=== PATIENT | male | born 1975 | race Caucasian/White ===

== ENCOUNTER 2017-05-24 16:40 | Inpatient (IN) | payer MEDICAID ==
[2017-05-24] MEDS ORDERED: ONDANSETRON 4 MG/2 ML VIAL IVP ONE (16:48)
[2017-05-24] MEDS ORDERED: fentaNYL 100 MCG/2 ML INJ IVP ONE ×3 (16:48→19:03)
[2017-05-24] MEDS ORDERED: TDAP ADULT 0.5 ML INJ (BOOSTRIX) IM ONE (16:48)
[2017-05-24] MEDS ORDERED: NS 1,000 ML IV ONE ×2 (16:48→17:55)
--- NOTE | 2017-05-24 16:52 | EDPHY ---
H & P HPI/ROS: HPI CHIEF COMPLAINT: Fell 10-12 feet off a roof. Head injury. Head laceration. Right wrist pain. Left shoulder pain. Bilateral knee pain. Positive LOC. HISTORY OF PRESENT ILLNESS: This patient is a 42-year-old male, otherwise healthy no significant medical history does not take any daily medications not on any anticoagulation. He states that he fell off a roof 10-12 feet. He struck his head on concrete. Positive LOC. He presents by private vehicle walk into the emergency room. He is GCS 15 upon arrival. Hemodynamically stable. His main complaint is left shoulder pain, right wrist pain, headache. He denies any neck pain chest pain or shortness of breath. Denies abdominal pain. Additionally tells me he has bilateral knee pain. His pain is 7/10. Worse on his left shoulder. He has an obvious deformity on his right wrist. Upon arrival to the emergency room this patient head to toe trauma exam. He was immediately placed in a cervical collar. His clothes were all removed. His head to toe trauma exam shows an obvious right wrist deformity. Not open. His right hand is neurovascularly intact. Additionally he has a deformity to his left shoulder. His left arm is neurovascular intact good distal pulse. Good distal pulses both arms. He has obvious head laceration to left frontal temporal region. No midline cervical spine pain or step-offs. No back pain on exam. Moves all his extremities but complains of bilateral knee pain. Past Medical History: No medical history Past Surgical History: No surgical history Social History: Denies daily use drugs alcohol tobacco products. 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 Family History: Noncontributory. ROS REVIEW OF SYSTEMS: A comprehensive 10 point review of systems is otherwise negative aside from elements mentioned in the history of present illness. Exam Constitutional GCS 15, alert and orient x4, triage nursing summary reviewed, vital signs reviewed, awake/alert. Eyes normal conjunctivae and sclera, EOMI, PERRLA. HENT head/neck: Obvious scalp hematoma to left side of the head, with laceration present, neck no midline cervical spine pain or step-offs, no crepitus. Midface stable. No evidence of basilar skull fracture. TMs are clear. moist mucus membranes, no epistaxis, neck supple/ no meningismus, no raccoon eyes. Respiratory clear to auscultation bilaterally, normal breath sounds, no respiratory distress, no wheezing. Cardiovascular no chest wall crepitus. No chest wall deformity. rate normal, regular rhythm, no murmur, no edema, distal pulses normal. Gastrointestinal soft, non-tender, no rebound, no guarding, normal bowel sounds, no distension, no pulsatile mass. Genitourinary no CVA tenderness. Musculoskeletal left upper extremity: Good distal pulse. Good radial pulse. Good cap refill. Obvious deformity and swelling to left shoulder. Additionally right arm good distal pulse good cap refill. Warm extremity obvious deformity to the right wrist. Closed. Bilateral knee tenderness to palpation anteriorly. However full range of motion no significant swelling. No laceration present. no midline vertebral tenderness, full range of motion, no calf swelling, no tenderness of extremities, no meningismus, neurovascularly intact. Skin pink, warm, & dry, no rash, laceration present to the left frontal temporal region. Neurologic awake, alert and oriented x 3, AAOx3, moves all 4 extremities equally, motor intact, sensory intact, CN II-XII intact, normal cerebellar, normal vision, normal speech. Psychiatric normal mood/affect. Heme/Lymph/Immune no lymphadenopathy. Differential Diagnosis: Includes but is not limited to in a particular order closed-head injury, concussion, scalp hematoma, scalp laceration, intracranial bleed, traumatic subarachnoid, subdural, epidural, skull fracture, cervical spine injury, multiple orthopedic injuries including right wrist fracture, left shoulder fracture, rib fractures, chest wall injury, intrathoracic chest traumatic injury, intra-abdominal traumatic injury, solid organ injury, extremity injury. Medical Decision Making: Plan for this patient 2 large-bore IVs full gambling monitor, blood draw, IV fluid bolus 1 L normal saline, IV fentanyl for pain control. IV Zofran for nausea. Proceed directly to CT scan head neck chest abdomen pelvis trauma protocol. And then secondary survey with x-rays of the right wrist, left shoulder, bilateral knees. Re-evaluation: CT scan of the head without contrast and cervical spine without contrast for trauma. The results of the study are shows a significant left scalp hematoma, otherwise no intracranial bleed or skull fracture, no cervical spine fracture]. The study was read by Dr. Ceja I viewed the images myself on the PACS system. CT scan of the chest abdomen pelvis with IV contrast for trauma . The results of the study are no acute traumatic injury. It does recognize a left shoulder posterior dislocation with Hill-Sachs deformity.. The study was read by Dr. Ceja I viewed the images myself on the PACS system. ED x-ray: Chest one view: This shows no acute cardiopulmonary disease however does recognize the left posterior shoulder dislocation. ED x-ray left shoulder: This shows a posterior shoulder dislocation with Hill- Sachs deformity. As well as a hairline fracture through the neck head region ED x-ray right wrist: This shows a comminuted distal right wrist radius fracture. Critical Care: Total Critical Care Time Spent Managing this Patient: 65 Minutes. This time was spent Exclusively with this patient. This Care was exclusive of procedures. The Organ System/life at risk was poly trauma This Patient was in Critical Condition because multiple orthopedic fractures. Additionally large scalp hematoma additionally large scalp laceration. 1840: Procedure: Procedural sedation. Indication: Closed reduction of left shoulder posterior dislocation additionally indication comminuted distal right radius fracture requiring reduction. Additional procedure laceration repair under conscious sedation. A pre-sedation evaluation was completed on the patient just prior to the procedure. Patient is an appropriate candidate for procedural sedation with ASA class 1 E. The risks of the sedation were discussed including but not limited to dysrhythmia, need for airway intervention or general anesthesia, disability, ; and verbal consent obtained. A timeout was observed and patient's identity confirmed. The patient was sedated with 100mg PROPOFOL The patient was monitored with continuous pulse oximetry, capnography, and gambling monitor. There were no complications and no significant hypoxemia. I remained at the bedside for the sedation. The total time I spent in the procedural sedation was 35. 1855: This patient is now recovered from conscious sedation. He speaking coherently. There were no complications. His right arm was splinted. It was splinted in a sugar-tong splint. He is neurovascularly intact post splint placement. Good radial pulse. Good cap refill. Additionally the patient's left arm was placed in a sling. Right arm post sugar -tong splint is now pacing the sling. Laceration Repair Procedure: Verbal Consent was obtained, Under sterile conditions, The patient had lidocaine with epinephrine used approximately 10ccs to local anesthetize the 10cm LEFT SCALP FOREHEAD WITH HEMATOMA Laceration. The wound was copiously irrigated with sterile fluid, the wound was explored for foreign bodies there were none visualized, the wound was explored with a sterile glove to the base. There are no deep structures involved, including no arterial injury. NINE Interrupted 5.OPROLENE Sutures were placed in this patient's laceration. He had good close approximation of the wound edges. He Tolerated this well. 1849: I spoke with Trauma surgery Dr. Zhou Glover. He has accepted this patient in transfer to [facility] emergency room as a trauma patient. Reason for transfer observation. Reason for transfer right arm fracture, left arm fracture, left arm dislocation, left forehead hematoma, left forehead laceration , fall 10 feet. Need for observation. ED x-ray bilateral knees: Images reviewed by me. I do not appreciate acute fracture. FINAL DIAGNOSIS: Right wrist fracture, left humeral neck fracture, left shoulder dislocation, significant left-sided scalp hematoma, forehead laceration. 1858: Additionally did update the emergency room on this patient's condition. He remains hemodynamically stable GCS 15 no acute distress. He will be transferred by ALS transport to ER. 1902: I did consult Dr. Alvarado with Orthopedics and discussed this patient's Orthopedics injury including wrist. Left shoulder. He will consult on the patient at [facility]. Source: Patient Constitutional: Initial Vital Signs Temperature (C) 36.9 C 05/24/17 16:42 Heart Rate 82 05/24/17 16:42 Respiratory Rate 28 H 05/24/17 16:42 Blood Pressure 140/112 H 05/24/17 16:42 O2 Sat (%) 94 05/24/17 16:42 O2 Delivery Mode [Procedural Non-Rebreather Mask 1st] O2 Delivery Mode [Procedural Non-Rebreather Mask 2nd] O2 Delivery Mode [.Immediate Non-Rebreather Mask Pre-Procedure Procedural 1st] O2 Delivery Mode Room Air O2 (L/minute) [Procedural 1st] 15 O2 (L/minute) [Procedural 2nd] 15 O2 (L/minute) [.Immediate Pre- 15 Procedure Procedural 1st] Allergies/Adverse Reactions: No Known Allergies Allergy (Verified 05/24/17 16:50) Home Medications: Medication Instructions Recorded NK [No Known Home Meds] 05/24/17 Medical Decision Making - Diagnostics Imaging Results: Imaging Impressions Abdomen CT 05/24/17 16:46 Impression: 1. 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 2. No evidence of laceration of the liver, spleen, pancreas, or kidneys. 3. No retroperitoneal hematoma. 4. No lumbar compression fractures or pelvic bone fractures. Findings and recommendations discussed with Emergency Department physician, Liang Fuentes MD at 17:35 hour, 05/24/2017. Final report concurs with initial preliminary interpretation. Cervical Spine CT 05/24/17 16:46 Impression: 1. Posterior dislocation of the left shoulder with Hill-Sachs fracture deformity of the left humeral head. 2. No definite cervical spine fracture or spondylolisthesis. 3. If there is persistent pain or neurological deficit, recommend MR cervical spine and consider flexion and extension views, if clinically indicated. Findings and recommendations discussed with Emergency Department physician, Liang Fuentes MD, at 17:35 hour, 05/24/2017. Final report concurs with initial preliminary interpretation. Chest CT 05/24/17 16:46 Impression: 1. Posterior dislocation of the left shoulder with Hill-Sachs fracture deformity. 2. No pneumothorax, mediastinal hematoma, or pleural effusion. 3. No aortic rupture or dissection. Findings and recommendations discussed with Emergency Department physician, Liang Fuentes MD, at 17:35 hour, 05/24/2017. Final report concurs with initial preliminary interpretation. Chest X-Ray 05/24/17 16:46 Impression: 1. No acute pulmonary disease. 2. No pneumothorax. 3. Left humeral head Hill-Sachs fracture deformity better identified on the CT. Consider dedicated left shoulder x-rays. Head CT 05/24/17 16:46 Impression: 1. No intracranial hemorrhage or mass effect. 2. Left frontal scalp hematoma. 3. No skull fracture. Findings and recommendations discussed with Emergency Department physician, Liang Fuentes MD, at 17:35 hour, 05/24/2017. Final report concurs with initial preliminary interpretation. Knee X-Ray 05/24/17 16:47 Impression: 1. Normal bilateral knee series. No fracture. Shoulder X-Ray 05/24/17 16:47 Impression: 1. Hairline fracture suspected proximal left humeral shaft that probably extends into the humeral head region. 2. Clinical correlation recommended to rule out possible posterior dislocation. Consider Y view or axillary view as clinically directed. Wrist X-Ray 05/24/17 16:47 Impression: 1. Acute comminuted displaced and angulated intra-articular distal radius fracture. 2. Acute displaced ulna styloid fracture. Knee X-Ray 05/24/17 16:54 Impression: 1. Normal bilateral knee series. No fracture. - Data Points Laboratory Results: Laboratory Results 05/24/17 19:05 05/24/17 16:53 05/24/17 05/24/17 05/24/17 19:05 19:05 16:53 WBC 14.15 10^3/uL H 10^3/uL (3.80-9.50) RBC 3.87 10^6/uL L 10^6/uL (4.40-6.38) Hgb 12.0 g/dL L g/dL (13.7-17.5) POC Hgb 15.0 gm/dL gm/dL (13.7-17.5) Hct 35.8 % L % (40.0-51.0) POC Hct 44 % % (40-51) MCV 92.5 fL fL (81.5-99.8) MCH 31.0 pg pg (27.9-34.1) MCHC 33.5 g/dL g/dL (32.4-36.7) RDW 12.2 % % (11.5-15.2) Plt Count 174 10^3/uL 10^3/uL (150-400) MPV 9.8 fL fL (8.7-11.7) Neut % (Auto) 85.7 % H % (39.3-74.2) Lymph % (Auto) 8.0 % L % (15.0-45.0) Fajardo % (Auto) 5.3 % % (4.5-13.0) Eos % (Auto) 0.1 % L % (0.6-7.6) Baso % (Auto) 0.2 % L % (0.3-1.7) Nucleat RBC Rel Count 0.0 % % (0.0-0.2) Absolute Neuts (auto) 12.13 10^3/uL H 10^3/uL (1.70-6.50) Absolute Lymphs (auto) 1.13 10^3/uL 10^3/uL (1.00-3.00) Absolute Monos (auto) 0.75 10^3/uL 10^3/uL (0.30-0.80) Absolute Eos (auto) 0.01 10^3/uL L 10^3/uL (0.03-0.40) Absolute Basos (auto) 0.03 10^3/uL 10^3/uL (0.02-0.10) Absolute Nucleated RBC 0.00 10^3/uL 10^3/uL (0-0.01) Immature Gran % 0.7 % % (0.0-1.1) Immature Gran # 0.10 10^3/uL 10^3/uL (0.00-0.10) PT INR APTT POC Sodium 144 mEq/L mEq/L (134-144) Sodium POC Potassium 3.5 mEq/L mEq/L (3.3-5.0) Potassium POC Chloride 104 mEq/L mEq/L (97-110) Chloride Carbon Dioxide Anion Gap POC BUN 14 mg/dL mg/dL (7-23) BUN Creatinine POC Creatinine 1.4 mg/dL H mg/dL (0.7-1.3) Estimated GFR Glucose POC Glucose 154 mg/dL H mg/dL (70-100) Calcium Patient ABO/Rh Pending Antibody Screen Pending 05/24/17 05/24/17 05/24/17 16:53 16:53 16:53 WBC 8.28 10^3/uL 10^3/uL (3.80-9.50) RBC 4.57 10^6/uL 10^6/uL (4.40-6.38) Hgb 14.4 g/dL g/dL (13.7-17.5) POC Hgb Hct 41.4 % % (40.0-51.0) POC Hct MCV 90.6 fL fL (81.5-99.8) MCH 31.5 pg pg (27.9-34.1) MCHC 34.8 g/dL g/dL (32.4-36.7) RDW 12.1 % % (11.5-15.2) Plt Count 214 10^3/uL 10^3/uL (150-400) MPV 10.1 fL fL (8.7-11.7) Neut % (Auto) 54.1 % % (39.3-74.2) Lymph % (Auto) 39.9 % % (15.0-45.0) Fajardo % (Auto) 4.2 % L % (4.5-13.0) Eos % (Auto) 0.6 % % (0.6-7.6) Baso % (Auto) 0.6 % % (0.3-1.7) Nucleat RBC Rel Count 0.0 % % (0.0-0.2) Absolute Neuts (auto) 4.48 10^3/uL 10^3/uL (1.70-6.50) Absolute Lymphs (auto) 3.30 10^3/uL H 10^3/uL (1.00-3.00) Absolute Monos (auto) 0.35 10^3/uL 10^3/uL (0.30-0.80) Absolute Eos (auto) 0.05 10^3/uL 10^3/uL (0.03-0.40) Absolute Basos (auto) 0.05 10^3/uL 10^3/uL (0.02-0.10) Absolute Nucleated RBC 0.00 10^3/uL 10^3/uL (0-0.01) Immature Gran % 0.6 % % (0.0-1.1) Immature Gran # 0.05 10^3/uL 10^3/uL (0.00-0.10) PT 13.0 SEC SEC (12.0-15.0) INR 1.01 (0.83-1.16) APTT 24.3 SEC SEC (23.0-38.0) POC Sodium Sodium 141 mEq/L mEq/L (134-144) POC Potassium Potassium 3.8 mEq/L mEq/L (3.5-5.2) POC Chloride Chloride 104 mEq/L mEq/L (97-110) Carbon Dioxide 24 mEq/l mEq/l (22-31) Anion Gap 13 mEq/L mEq/L (8-16) POC BUN BUN 14 mg/dL mg/dL (7-23) Creatinine 1.2 mg/dL mg/dL (0.7-1.3) POC Creatinine Estimated GFR > 60 Glucose 139 mg/dL H mg/dL (70-100) POC Glucose Calcium 9.1 mg/dL mg/dL (8.5-10.4) Patient ABO/Rh Antibody Screen Medications Given: Cefazolin Sodium 2 gm/ Sodium (Chloride) 100 mls @ 200 mls/hr IV EDNOW ONE PRN Reason: Protocol Stop: 05/24/17 19:32 Last Admin: 05/24/17 19:15 Dose: Not Given Discontinued Medications Diphtheria/Tetanus/Acell Pertussis (Boostrix) 0.5 ml IM .ONCE ONE Stop: 05/24/17 16:49 Last Admin: 05/24/17 17:57 Dose: 0.5 ml Fentanyl (Sublimaze) 50 mcg IVP EDNOW ONE Stop: 05/24/17 16:49 Last Admin: 05/24/17 17:02 Dose: 50 mcg Fentanyl (Sublimaze) 50 mcg IVP EDNOW ONE Stop: 05/24/17 17:52 Last Admin: 05/24/17 17:53 Dose: 50 mcg Fentanyl (Sublimaze) 50 mcg IVP EDNOW ONE Stop: 05/24/17 19:04 Last Admin: 05/24/17 19:05 Dose: 50 mcg Sodium Chloride (Ns) 1,000 mls @ 0 mls/hr IV ONCE ONE PRN Reason: Wide Open Stop: 05/24/17 16:49 Last Admin: 05/24/17 16:50 Dose: 1,000 mls Ondansetron HCl (Zofran) 4 mg IVP EDNOW ONE Stop: 05/24/17 16:49 Last Admin: 05/24/17 17:04 Dose: 4 mg Propofol (Diprivan) 100 mg IVP EDNOW ONE Stop: 05/24/17 18:18 Last Admin: 05/24/17 18:17 Dose: 100 mg Point of Care Test Results: 05/24/17 16:53 POC Sodium 144 POC Potassium 3.5 POC Chloride 104 POC BUN 14 POC Creatinine 1.4 H POC Glucose 154 H Departure - Departure Disposition: [facility] Inpatient Acute Clinical Impression: Soft tissue injury Traumatic hematoma of forehead Qualifiers: Encounter type: initial encounter Qualified Code(s): S00.83XA - Contusion of other part of head, initial encounter Forehead laceration Qualifiers: Encounter type: initial encounter Qualified Code(s): S01.81XA - Laceration without foreign body of other part of head, initial encounter Wrist fracture Qualifiers: Encounter type: initial encounter Fracture type: closed Laterality: right Qualified Code(s): S62.101A - Fracture of unspecified carpal bone, right wrist, initial encounter for closed fracture Shoulder dislocation Qualifiers: Encounter type: initial encounter Laterality: left Qualified Code(s): S43.005A - Unspecified dislocation of left shoulder joint, initial encounter Humeral surgical neck fracture Qualifiers: Encounter type: initial encounter Fracture type: closed Fracture morphology: unspecified fracture morphology Fracture alignment: nondisplaced Laterality: left Qualified Code(s): S42.215A - Unspecified nondisplaced fracture of surgical neck of left humerus, initial encounter for closed fracture Fall Qualifiers: Encounter type: initial encounter Qualified Code(s): W19.XXXA - Unspecified fall, initial encounter Condition: Serious Referrals: Patient,NotPresent [Primary Care Provider] - As per Instructions
[2017-05-24 16:59] LABS: % IMMATURE GRANULYOCYTES 0.6 % (0.0-1.1); ABSOLUTE IMMATURE GRANULOCYTES 0.05 10^3/uL (0.00-0.10); ADD DIFF? NO; ADD MORPH? NO; ADD SCAN? NO; ATYPICAL LYMPHOCYTE FLAG 10 (0-99); FRAGMENT RBC FLAG 0 (0-99); HEMATOCRIT 41.4 % (40.0-51.0); HEMOGLOBIN 14.4 g/dL (13.7-17.5); LEFT SHIFT FLG 0 (0-99); LIPEMIA HEMOLYSIS FLAG 90 (0-99); MEAN CELL HEMOGLOBIN 31.5 pg (27.9-34.1); MEAN CELL HEMOGLOBIN CONCENTR. 34.8 g/dL (32.4-36.7); MEAN CELL VOLUME 90.6 fL (81.5-99.8); MEAN PLATELET VOLUME 10.1 fL (8.7-11.7); PLATELET CLUMPS FLAG 10 (0-99); PLATELET COUNT 214 10^3/uL (150-400); RED BLOOD CELL COUNT 4.57 10^6/uL (4.40-6.38); RED CELL DISTRIBUTION WIDTH 12.1 % (11.5-15.2)
[2017-05-24] MEDS ORDERED: IOPAMIDOL (ISOVUE-300) 100 ML BTL ONE (17:03)
[2017-05-24 17:14] LABS: APTT 24.3 SEC (23.0-38.0); INR 1.01 (0.83-1.16)
[2017-05-24 17:16] LABS: ANION GAP 13 mEq/L (8-16); CALCIUM 9.1 mg/dL (8.5-10.4); CARBON DIOXIDE 24 mEq/l (22-31); CHLORIDE 104 mEq/L (97-110); CREATININE 1.2 mg/dL (0.7-1.3); GLOMERULAR FILTRATION RATE > 60; GLUCOSE 139 mg/dL (70-100); POTASSIUM 3.8 mEq/L (3.5-5.2); SODIUM 141 mEq/L (134-144)
[2017-05-24] MEDS ORDERED: fentaNYL 100 MCG/2 ML INJ ONE (17:50)
[2017-05-24] MEDS ORDERED: PROPOFOL 200 MG/20 ML VIAL ONE (18:01)
[2017-05-24] MEDS ORDERED: PROPOFOL 200 MG/20 ML VIAL IVP ONE (18:17)
[2017-05-24] MEDS ORDERED: ceFAZolin 2 GM in NS 100 ML IV ONE (19:03)
[2017-05-24 19:09] LABS: % IMMATURE GRANULYOCYTES 0.7 % (0.0-1.1); ADD DIFF? NO; ADD MORPH? NO; ADD SCAN? NO; ATYPICAL LYMPHOCYTE FLAG 0 (0-99); FRAGMENT RBC FLAG 0 (0-99); HEMATOCRIT 35.8 % (40.0-51.0); LEFT SHIFT FLG 0 (0-99); LIPEMIA HEMOLYSIS FLAG 80 (0-99); MEAN CELL HEMOGLOBIN CONCENTR. 33.5 g/dL (32.4-36.7); MEAN CELL VOLUME 92.5 fL (81.5-99.8); MEAN PLATELET VOLUME 9.8 fL (8.7-11.7); PLATELET CLUMPS FLAG 0 (0-99); PLATELET COUNT 174 10^3/uL (150-400); RED BLOOD CELL COUNT 3.87 10^6/uL (4.40-6.38); RED CELL DISTRIBUTION WIDTH 12.2 % (11.5-15.2)
--- NOTE | 2017-05-24 19:52 | EDPHY ---
H & P HPI/ROS: CHIEF COMPLAINT: Multi trauma HISTORY OF PRESENT ILLNESS: This is a 42-year-old male who was initially evaluated the [facility] after she walked in following a significant traumatic event. Patient fell 10-15 feet off of a roof landing on his head. Evaluation at the [facility] included CT scans of his head, cervical spine, chest, abdomen pelvis all of which demonstrated no acute traumatic findings. Patient had a left shoulder dislocation which was reduced with sedation. Patient also had a right wrist fracture which was reduced and splinted, and done under sedation. Patient has significant scalp laceration on the left with a large hematoma. This was repaired prior to transfer. Patient's course has been discussed by Dr. Liang Fuentes with Dr. Zhou Balbuena. Patient presents to the emergency department for further evaluation and admission to the hospital. On arrival to the emergency department the patient reports that he is feeling much improved. He does still continue to have some discomfort in his right wrist. REVIEW OF SYSTEMS: Aside from elements discussed in the HPI, a comprehensive 10-point review of systems was reviewed and is negative. PAST MEDICAL HISTORY: Patient denies. Status post appendectomy SOCIAL HISTORY: Nonsmoker. 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 VITAL SIGNS: see nurse's notes. GENERAL: Well-developed, well-nourished, reporting pain in his wrist. HEENT: Bandages around the head. Pupils are equal round reactive to light. Extraocular movements are intact. No oral trauma noted. Neck: supple, FROM. Non tenderness palpation. LUNGS: Clear to auscultation. CARDIAC: Regular rate and rhythm. ABDOMEN: Soft nontender nondistended. BACK: No CVA tenderness. No vertebral tenderness. EXTREMITIES: Left shoulder is in a sling. Patient has abrasions over the deltoid. Right upper extremity is in a splint and sling. NEURO: Alert and oriented, grossly nonfocal. SKIN: [Warm and dry, no rash. Constitutional: Initial Vital Signs Temperature (C) 36.9 C 05/24/17 16:42 Heart Rate 82 05/24/17 16:42 Respiratory Rate 28 H 05/24/17 16:42 Blood Pressure 140/112 H 05/24/17 16:42 O2 Sat (%) 94 05/24/17 16:42 O2 Delivery Mode [Post Room Air Procedure 4th] O2 Delivery Mode [Post Non-Rebreather Mask Procedure 3rd] O2 Delivery Mode [Post Non-Rebreather Mask Procedure 2nd] O2 Delivery Mode [Post Non-Rebreather Mask Procedure 1st] O2 Delivery Mode [Procedural Non-Rebreather Mask 1st] O2 Delivery Mode [Procedural Non-Rebreather Mask 2nd] O2 Delivery Mode [.Immediate Non-Rebreather Mask Pre-Procedure Procedural 1st] O2 Delivery Mode Room Air O2 (L/minute) [Post Procedure 15 3rd] O2 (L/minute) [Post Procedure 15 2nd] O2 (L/minute) [Post Procedure 15 1st] O2 (L/minute) [Procedural 1st] 15 O2 (L/minute) [Procedural 2nd] 15 O2 (L/minute) [.Immediate Pre- 15 Procedure Procedural 1st] O2 (L/minute) 15 Allergies/Adverse Reactions: No Known Allergies Allergy (Verified 05/24/17 20:29) Home Medications: Medication Instructions Recorded Ibuprofen [Motrin (*)] 600 mg PO Q6H PRN 05/24/17 Multivitamins [Multivitamin (*)] 1 each PO DAILY 05/24/17 MDM/Departure - [facility] Imaging Results: Imaging Impressions Abdomen CT 05/24/17 16:46 Impression: 1. 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 2. No evidence of laceration of the liver, spleen, pancreas, or kidneys. 3. No retroperitoneal hematoma. 4. No lumbar compression fractures or pelvic bone fractures. Findings and recommendations discussed with Emergency Department physician, Liang Fuentes MD at 17:35 hour, 05/24/2017. Final report concurs with initial preliminary interpretation. Cervical Spine CT 05/24/17 16:46 Impression: 1. Posterior dislocation of the left shoulder with Hill-Sachs fracture deformity of the left humeral head. 2. No definite cervical spine fracture or spondylolisthesis. 3. If there is persistent pain or neurological deficit, recommend MR cervical spine and consider flexion and extension views, if clinically indicated. Findings and recommendations discussed with Emergency Department physician, Liang Fuentes MD, at 17:35 hour, 05/24/2017. Final report concurs with initial preliminary interpretation. Chest CT 05/24/17 16:46 Impression: 1. Posterior dislocation of the left shoulder with Hill-Sachs fracture deformity. 2. No pneumothorax, mediastinal hematoma, or pleural effusion. 3. No aortic rupture or dissection. Findings and recommendations discussed with Emergency Department physician, Liang Fuentes MD, at 17:35 hour, 05/24/2017. Final report concurs with initial preliminary interpretation. Chest X-Ray 05/24/17 16:46 Impression: 1. No acute pulmonary disease. 2. No pneumothorax. 3. Left humeral head Hill-Sachs fracture deformity better identified on the CT. Consider dedicated left shoulder x-rays. Head CT 05/24/17 16:46 Impression: 1. No intracranial hemorrhage or mass effect. 2. Left frontal scalp hematoma. 3. No skull fracture. Findings and recommendations discussed with Emergency Department physician, Liang Fuentes MD, at 17:35 hour, 05/24/2017. Final report concurs with initial preliminary interpretation. Knee X-Ray 05/24/17 16:47 Impression: 1. Normal bilateral knee series. No fracture. Shoulder X-Ray 05/24/17 16:47 Impression: 1. Hairline fracture suspected proximal left humeral shaft that probably extends into the humeral head region. 2. Clinical correlation recommended to rule out possible posterior dislocation. Consider Y view or axillary view as clinically directed. Wrist X-Ray 05/24/17 16:47 Impression: 1. Acute comminuted displaced and angulated intra-articular distal radius fracture. 2. Acute displaced ulna styloid fracture. Knee X-Ray 05/24/17 16:54 Impression: 1. Normal bilateral knee series. No fracture. Shoulder X-Ray 05/24/17 18:21 Impression: 1. Good position left humeral head postreduction. 2. A hairline fracture previously suspected proximal left humeral head to neck is not as well delineated on these images. Consider follow-up. Wrist X-Ray 05/24/17 18:22 Impression: Good alignment of complex distal right radial fracture as well as fracture of the ulnar styloid. Medications Given: Discontinued Medications Diphtheria/Tetanus/Acell Pertussis (Boostrix) 0.5 ml IM .ONCE ONE Stop: 05/24/17 16:49 Last Admin: 05/24/17 17:57 Dose: 0.5 ml Fentanyl (Sublimaze) 50 mcg IVP EDNOW ONE Stop: 05/24/17 16:49 Last Admin: 05/24/17 17:02 Dose: 50 mcg Fentanyl (Sublimaze) 50 mcg IVP EDNOW ONE Stop: 05/24/17 17:52 Last Admin: 05/24/17 17:53 Dose: 50 mcg Fentanyl (Sublimaze) 50 mcg IVP EDNOW ONE Stop: 05/24/17 19:04 Last Admin: 05/24/17 19:05 Dose: 50 mcg Sodium Chloride (Ns) 1,000 mls @ 0 mls/hr IV ONCE ONE PRN Reason: Wide Open Stop: 05/24/17 16:49 Last Admin: 05/24/17 16:50 Dose: 1,000 mls Cefazolin Sodium 2 gm/ Sodium (Chloride) 100 mls @ 200 mls/hr IV EDNOW ONE PRN Reason: Protocol Stop: 05/24/17 19:32 Last Admin: 05/24/17 19:15 Dose: Not Given Sodium Chloride (Ns) 1,000 mls @ 0 mls/hr IV ONCE ONE PRN Reason: Wide Open Stop: 05/24/17 17:56 Last Admin: 05/24/17 17:55 Dose: 1,000 mls Cefazolin Sodium/Dextrose (Ancef 1 Gm (Premix)) 50 mls @ 200 mls/hr IV EDNOW ONE PRN Reason: Protocol Stop: 05/24/17 20:07 Last Admin: 05/24/17 20:08 Dose: 50 mls Ondansetron HCl (Zofran) 4 mg IVP EDNOW ONE Stop: 05/24/17 16:49 Last Admin: 05/24/17 17:04 Dose: 4 mg Propofol (Diprivan) 100 mg IVP EDNOW ONE Stop: 05/24/17 18:18 Last Admin: 05/24/17 18:17 Dose: 100 mg ED Course/Re-evaluation: Dr. Balbuena was contacted on the patient's arrival to the emergency department. Patient has had Ancef ordered but had not been given prior to his transfer. 1 g of Ancef was infused. Patient will be admitted to the surgical service for multi trauma. Dr. Alvarado has previously been contact with respect to the patient's orthopedic injuries. Differential Diagnosis: Differential diagnosis of this patient's traumatic event was considered including but not limited to intracranial injury, long bone and pelvic bone fracture, spinal injury, intrathoracic injury, extremity injury, intra- abdominal injury, lacerations, abrasions, and contusions. - Depart Disposition: [facility] Acute Clinical Impression: Soft tissue injury Traumatic hematoma of forehead Qualifiers: Encounter type: initial encounter Qualified Code(s): S00.83XA - Contusion of other part of head, initial encounter Forehead laceration Qualifiers: Encounter type: initial encounter Qualified Code(s): S01.81XA - Laceration without foreign body of other part of head, initial encounter Wrist fracture Qualifiers: Encounter type: initial encounter Fracture type: closed Laterality: right Qualified Code(s): S62.101A - Fracture of unspecified carpal bone, right wrist, initial encounter for closed fracture Shoulder dislocation Qualifiers: Encounter type: initial encounter Laterality: left Qualified Code(s): S43.005A - Unspecified dislocation of left shoulder joint, initial encounter Humeral surgical neck fracture Qualifiers: Encounter type: initial encounter Fracture type: closed Fracture morphology: unspecified fracture morphology Fracture alignment: nondisplaced Laterality: left Qualified Code(s): S42.215A - Unspecified nondisplaced fracture of surgical neck of left humerus, initial encounter for closed fracture Fall Qualifiers: Encounter type: initial encounter Qualified Code(s): W19.XXXA - Unspecified fall, initial encounter Condition: Serious
[2017-05-24] MEDS ORDERED: CEFAZOLIN 2 GM/DEXTROSE/100 ML BAG IV ONE (20:01)
[2017-05-24] MEDS ORDERED: ONDANSETRON DISINTEGRATING 4 MG TAB PO PRN (20:16)
[2017-05-24] MEDS ORDERED: LR 1,000 ML IV SCH (20:30)
--- NOTE | 2017-05-24 21:01 | GHP ---
[f rep st] HISTORY AND PHYSICAL CHIEF COMPLAINT: Left shoulder, right wrist pain. 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 Does not recall the exact accident and was believed to have a short loss of consciousness. He was taken by private car to [facility] where a variety of diagnostic tests and examinations were done revealing a left scalp laceration with free bleeding and surrounding hematoma as well as deformity of the left shoulder, which proved to be a left shoulder dislocation. This was reduced at that site. Also a right distal radius and ulnar fracture are noted. The patient underwent CT of head, neck, chest, abdomen and pelvis showing no other specific injuries. He was transported to [facility] by ambulance with a splint on the right forearm and the left shoulder in a sling as well. He is admitted for pain control, orthopedic evaluation and obvious inability to use either arm. Laboratory exams showed borderline creatinine 1.2 and a glucose of 139. I reviewed the wrist, shoulder, knee x-ray and CT head, chest, abdomen and pelvis. As mentioned, there is a right distal radius ulnar fracture, a left Hill-Sachs fracture consistent with a posterior shoulder dislocation. No evidence of abdominal or chest injury. Assessed the above-mentioned injuries. The elevated glucose could be from over- aggressive fluid challenge versus unsuspected diabetes. We will get a hemoglobin A1c just to answer this question. ALLERGIES: None. CURRENT MEDICATIONS: None. PAST SURGICAL HISTORY: Appendectomy. REVIEW OF SYSTEMS: Unremarkable. Denies asthma, heart trouble, diabetes, epilepsy, rheumatic fever. SOCIAL HISTORY: Nonsmoker, nondrinker. PHYSICAL EXAMINATION: HEENT: Within normal limits. Awake, alert. A head wrap and dressing is applied to the left frontal parietal scalp and left in place. Tongue protrudes in the midline. No facial trauma. NECK: Nontender. No supraclavicular or axillary crepitus. LUNGS: Clear. HEART: Normal S1, S2 without murmur. Manubrium is stable. LUNGS: Clear. CHEST WALL: Stable to compression. ABDOMEN: Soft, benign, nontender. PELVIS: Stable, nontender. LOWER EXTREMITIES: Unremarkable. Good dorsalis pedis pulses bilaterally. PLAN: Admit. Pain control. Orthopedics to see patient in the morning. /[id number]/MODL MTDD
[2017-05-24] MEDS: HYDROCODONE/APAP 5/325 TAB PO PRN (22:33)
[2017-05-25] MEDS: HYDROCODONE/APAP 5/325 TAB PO PRN (05:17)
--- NOTE | 2017-05-25 08:09 | GCON ---
[f rep st] CONSULTATION ORTHOPEDIC CONSULTATION DATE OF CONSULTATION: 05/25/2017 REASON FOR CONSULTATION: 1. Right intra-articular distal radius fracture. 2. Left posterior dislocation. 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 He was initially seen at the [facility] Emergency Room. Shoulder was reduced , as well as the wrist, and then [facility]. Ad mitted to Dr. Balbuena on the trauma service. I was consulted to help care for the orthopedic injur ies. PRIOR MEDICAL HISTORY: None. SURGICAL HISTORY: Appendectomy. 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 ; lives in [place]. He does not smoke. Reports occasional alcohol use. REVIEW OF SYSTEMS: No shortness of breath. No chest pain. He does complain of some neck stiffness, as well as a headache, wrist, shoulder pain. Otherwise, review of systems is unremarkable. PHYSICAL EXAM: VITAL SIGNS: This morning on the floor, his blood pressure is 95/61, heart rate is 9 0, respiratory rate is 16, oxygen saturation is 99% on room air. Temperature is 36.6. He has a dres sing on his scalp where the laceration was closed. He has a splint on his right wrist. He is in a s ling on his left shoulder. Sensation in the median nerve distribution on the right hand is intact. Br achial plexus function is intact on the left shoulder. He has 2+ radial pulses bilaterally. LABORATORY DATA: Hemoglobin 12, hematocrit 35. Coag panel is normal. Chemistries: Creatinine is s lightly high at 1.4, blood glucose is high at 154; otherwise chemistry looks good. IMAGING STUDIES: X-rays of the wrist pre and post reduction show satisfactory reduction of an intra- articular distal radius fracture. He has an ulnar styloid fracture on that side. Left shoulder has been concentrically reduced. There may be a nondisplaced surgical neck fracture of the humerus on th e left. ASSESSMENT: 1. Multi trauma with intra-articular distal radius fracture, right, reduced. 2. Posterior dislocation, left shoulder, reduced. PLAN: His wrist is in reasonable alignment and may be able to treat this nonoperatively if it stays aligned. Will see him back next week in the office and x-ray his wrist, possibly put him in a cast. I did explain if he loses his reduction, he would need open reduction, internal fixation of that. A s far as the shoulder is concerned, I think we will at some point need to get an MRI of that to asses s for a labral injury, as well as evaluate more fully the Hill-Sachs deformity that is present on the x-ray. We will continue the splint on the right arm full-time, sling full-time on the left shoulder . He does have his at home who can assist him with day-to-day activities. I did explain, it wi ll be quite sometime before he will be able to paint again and he understands this, and again followu p with me will be next week in the office. /[id number]/MODL
[2017-05-25] MEDS: IBUPROFEN 600 MG TAB PO PRN ×2 (09:36→15:30)
--- NOTE | 2017-05-25 10:03 | TRAUMAPN ---
Assessment/Plan: 42yo M s/p fall off roof c R distal wrist fx, L shoulder separation, head lac FULL TERTIARY EXAM PERFORMED - no other injuries identified - orthopedics to see this AM, likely non-op - head lac open, ice pack, may need additional buttressing - PT/OT, gonna have issues toileting, ? whether or not needs services Subjective: Doing ok, pain controlled. Objective: Vital Signs Temp Pulse Resp BP Pulse Ox 36.6 C 90 16 95/61 L 99 05/25/17 07:33 05/25/17 07:33 05/25/17 07:33 05/25/17 07:33 05/25/17 07:33 05/24/17 05/25/17 05/26/17 05:59 05:59 05:59 Intake Total 800 Balance 800 PT 13.0 SEC (12.0-15.0) 05/24/17 16:53 INR 1.01 (0.83-1.16) 05/24/17 16:53
--- NOTE | 2017-05-25 10:41 | ASMTCMCOM ---
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 Pt has a left shoulder dislocation and right wrist fx. Pt lives with who will be able to assist pt with his ADLs. C/M will follow for any DC needs. Date Signed: 05/25/2017 10:41 AM Electronically Signed By:Reina Ruiz LCSW
[2017-05-25] MEDS: oxyCODONE IR 5 MG TAB PO PRN ×3 (12:10→21:31)
[2017-05-25] MEDS ORDERED: FLU VACC QS 2017-18 (3YR+)/PF 0.5 ML SYR (FLUARIX QUAD) IM ONE (14:35)
[2017-05-26 04:24] VITALS: O2SAT 94
[2017-05-26] MEDS: oxyCODONE IR 5 MG TAB PO PRN ×2 (04:41→12:41)
[2017-05-26] MEDS: IBUPROFEN 600 MG TAB PO PRN ×2 (06:59→15:15)
[2017-05-26 08:54] VITALS: BP 110/70; PULSE 94; RESP 16; TEMP 98.2
--- NOTE | 2017-05-26 09:34 | TRAUMAPN ---
- Problem/Surgery Performed (1) Forehead laceration Assessment/Plan: Suture closure of laceration along with small abrasion. Patient denies headache loss of consciousness or other post concussive symptoms. He will need follow-up in 1 week in the emergency room or outpatient surgery Clinic for suture removal Qualifiers: Encounter type: initial encounter Qualified Code(s): S01.81XA - Laceration without foreign body of other part of head, initial encounter (2) Shoulder dislocation Assessment/Plan: Consultation with Dr. Alvarado from Orthopedic surgery who recommends full-time sling follow-up MRI for possible labral tear. His is aware he will need support for activities of daily living. 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 He will follow up with Dr. Alvarado in 1 week for clinical and radiologic evaluation of whether reduction of the fracture is sufficient for non operative care or whether fixation will be required. Qualifiers: Encounter type: initial encounter Fracture type: closed Laterality: right Qualified Code(s): S62.101A - Fracture of unspecified carpal bone, right wrist, initial encounter for closed fracture Assessment/Plan: Overall doing well after fall from 10-12 feet. 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 Alvarado. Discharge will be based on whether occupational therapy is able to assist him/evaluate him for home care with assistance from his . All questions were addressed with the patient and his . Most pressing concerns include time off work which will be an ongoing evaluation/evolution based on his overall needs from an orthopedic standpoint. They are aware of this. They are aware of the follow up with Dr. Alvarado next week. Regular rate and rhythm Clear to auscultation Abdomen soft nontender nondistended Left laceration repaired lateral abrasion healing Good muscle strength with civilian technician distally neurovascularly intact bilateral upper extremities Discharge pending Objective: Vital Signs Temp Pulse Resp BP Pulse Ox 36.8 C 94 16 110/70 94 05/26/17 08:00 05/26/17 08:00 05/26/17 08:00 05/26/17 08:00 05/26/17 08:00 05/25/17 05/26/17 05/27/17 05:59 05:59 05:59 Intake Total 700 Balance 700 PT 13.0 SEC (12.0-15.0) 05/24/17 16:53 INR 1.01 (0.83-1.16) 05/24/17 16:53
--- NOTE | 2017-05-26 16:38 | ASMTCMCOM ---
CM Note CM Note Notes: Patient has been discharged home with to assist as needed. PT recommends out-pt PT when ready, to f/u with out-pt clinic for suture removal. Date Signed: 05/26/2017 04:38 PM Electronically Signed By:Elsa Hayes LCSW
[2017-05-27 01:16] LABS: HEMOGLOBIN A1C 5.2 % (4.0-6.0)
--- NOTE | 2017-05-27 14:23 | ASDISCHSUM ---
Discharge Information Plan Status:Home with No Needs Medically Cleared to Leave:05/26/2017 Discharge Date:05/26/2017 05:03 PM CM D/C Disposition:Home, Routine, Self-Care ADT D/C Disposition:Home, Routine, Self-Care Projected Discharge Date:05/26/2017 05:00 PM Transportation at D/C:Family Discharge Delay Reason: Follow-Up Date:05/26/2017 05:00 PM Discharge Slot: Final Diagnosis:Concussion, dislocation left shoulder, wrist fx Placement Information Patient Contact Information Contact Name:CHAU Relationship: Address:[address] Work Phone: [facility]:[place] Alternate Phone: [facility]/Zip Code:[place] [address] Email: Financial Information Financial Class: Primary Plan Desc:[employer] [place] Primary Plan Number:[id number] Secondary Plan Desc: Secondary Plan Number: Assessment Information [facility] CM Progress Note 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 Pt has a left shoulder dislocation and right wrist fx. Pt lives with who will be able to assist pt with his ADLs. C/M will follow for any DC needs. Date Signed: 05/25/2017 10:41 AM Electronically Signed By:Reina Ruiz LCSW [facility] CM Progress Note CM Note CM Note Notes: Patient has been discharged home with to assist as needed. PT recommends out-pt PT when ready, to f/u with out-pt clinic for suture removal. Date Signed: 05/26/2017 04:38 PM Electronically Signed By:Elsa Gilbert, RN VASCULAR Intervention Information
== END 2017-05-26 17:03 | disposition home or self-care (01) | DRG 563 ==
LOC: CED 16:40 → F3N 21:49 → OBSVTOIN 05-25 10:49
PROVIDERS: ADMIT Surgery; ATTEND Surgery
PROC: 0RSKXZZ Reposition Left Shoulder Joint, External Approach (ICD-10-PCS; principal; 2017-05-25)
DX: S52.501A Unspecified fracture of the lower end of right radius, initial encounter for closed fracture (principal); S42.215A Unspecified nondisplaced fracture of surgical neck of left humerus, initial encounter for closed fracture; S52.611A Displaced fracture of right ulna styloid process, initial encounter for closed fracture; S01.81XA Laceration without foreign body of other part of head, initial encounter; S62.101A Fracture of unspecified carpal bone, right wrist, initial encounter for closed fracture; S43.005A Unspecified dislocation of left shoulder joint, initial encounter; W13.2XXA Fall from, out of or through roof, initial encounter; R40.2412 Glasgow coma scale score 13-15, at arrival to emergency department; Z23 Encounter for immunization
CPT/HCPCS: 70450-PO; 71010-PO; 71260-PO; 72125-PO; 73030-PO; 73110-PO; 73562-PO; 74177-PO; 80048-PO; 82947-QW; 85025-PO; 85610-PO; 85730-PO; 92523-GN; 96374; 97116-GP; 97162-GP; 97165-GO; 97535-GO; A4565; G0008; G0378; J0690; J2405; J2704; J3010; L0174; Q9967

== ENCOUNTER → 2017-06-06 | Outpatient (CLI) | payer MEDICAID | LOC: FIMAGING 18:44 | PROVIDERS: ATTEND Physician Assistant | DX: M75.102 Unspecified rotator cuff tear or rupture of left shoulder, not specified as traumatic (principal) ==

== ENCOUNTER → 2017-07-13 | Outpatient (CLI) | payer MEDICAID | LOC: FIMAGING 08:37 | PROVIDERS: ATTEND Physician Assistant | DX: S63.512A Sprain of carpal joint of left wrist, initial encounter (principal) ==

== ENCOUNTER → 2017-10-03 | Outpatient (CLI) | payer MEDICAID | LOC: FIMAGING 16:07 | PROVIDERS: ATTEND Physician Assistant | DX: S63.501D Unspecified sprain of right wrist, subsequent encounter (principal) ==